=== PATIENT | female | born 1965 | race Caucasian/White ===

== ENCOUNTER 2018-01-29 08:32 | Inpatient (IN) ==
[2018-01-24 16:11] LABS: Basophils # (Auto) 0 K/mcL (0.0-0.3); Basophils % (Auto) 0.6 % (0.0-2.0); Eosinophils # (Auto) 0.1 K/mcL (0.0-0.7); Eosinophils % (Auto) 2.2 % (0.0-7.0); Granulocytes % (Auto) 64.3 % (38.0-78.0); Lymphocytes # (Auto) 1.4 K/mcL (1.5-4.8); Lymphocytes % (Auto) 25.5 % (15.5-49.0); Mean Cell Volume 90.5 fL (80.0-100.0); Mean Corpuscular HGB Conc 34.1 g/dL (31.0-36.0); Mean Corpuscular Hemoglobin 30.8 pg (26.0-34.0); Monocytes # (Auto) 0.4 K/mcL (0.1-0.9); Monocytes % (Auto) 7.4 % (1.0-12.0); Platelet Count 315 K/mcL (140-440); RBC 4.46 M/mcL (4.00-5.20); Red Cell Distribution Width 13.4 % (11.5-14.5)
[2018-01-24 17:05] LABS: Appearance,Urine CLEAR; Bilirubin,Urine NEG (NEG); Color,Urine STRAW; Glucose,Urine (UA) NEGATIVE (NEG); Leukocyte Esterase,Urine NEG /uL (NEG); Protein,Urine NEG (NEG); Urine Blood NEG mg/dL (<0.03); Urobilinogen,Urine NEG (NEG)
[2018-01-24 17:20] LABS: Blood Urea Nitrogen 11 mg/dl (6-20)
[~2018-01-29 08:32] MED LIST: 0.9 % SODIUM CHLORIDE 9 ML, KETOROLAC 30 MG, ROPIVACAINE HCL/PF 49.5 ML, EPINEPHrine 0.... IJ SCH; GABAPENTIN 300 MG CAPSULE PO SCH; ceFAZolin 1 GM VIAL IV SCH; oxyCODONE 10 MG TAB.ER.12H PO SCH
[2018-01-29] MEDS ORDERED: GLYCOPYRROLATE 0.2 MG/ML VIAL IV ONE (13:45)
[2018-01-29] MEDS ORDERED: PROPOFOL 200 MG/20 ML VIAL IV ONE (13:45)
[2018-01-29] MEDS ORDERED: KETAMINE 100 MG/ML ML IV ONE (13:45)
[2018-01-29] MEDS ORDERED: MIDAZOLAM 5 MG/5 ML VIAL IV ONE (13:45)
[2018-01-29] MEDS ORDERED: DEXAMETHASONE 10 MG/ML VIAL IV ONE (13:45)
[2018-01-29] MEDS ORDERED: ROPIVACAINE HCL/PF 20 ML VIAL IJ ONE (13:45)
[2018-01-29] MEDS ORDERED: TRANEXAMIC ACID 1,000 MG/10 ML VIAL IV ONE ×2 (13:45→15:17)
[2018-01-29] MEDS ORDERED: LIDOCAINE HCL/PF 100 MG/5 ML SYRINGE IV ONE (13:45)
[2018-01-29] MEDS ORDERED: ONDANSETRON 4 MG/2 ML VIAL IV ONE (13:45)
[2018-01-29] MEDS ORDERED: MAGNESIUM HYDROXIDE 30 ML ORAL.SUSP PO PRN (15:17)
[2018-01-29] MEDS ORDERED: FLEETS ADULT ENEMA PR PRN (15:17)
[2018-01-29] MEDS ORDERED: BENZOCAINE/MENTHOL 1 LOZENGE PO PRN (15:17)
[2018-01-29] MEDS ORDERED: BISACODYL 10 MG SUPP.RECT PR PRN (15:17)
[2018-01-29] MEDS ORDERED: POLYETHYLENE GLYCOL 3350 17 GM PACKET PO PRN (15:17)
[2018-01-29] MEDS ORDERED: ONDANSETRON 4 MG/2 ML VIAL IV PRN (15:17)
--- NOTE | 2018-01-29 15:17 | Brief Operative Note ---
Date of procedure: 01/29/18 Pre-op diagnosis: Right knee severe DJD Post-op diagnosis: same Procedure: Right robotic assisted total knee arthroplasty Grafts/Implants: Yes ([place] Triathlon CR 4 femur, 4 tibia, 11mm insert, 33 patella) Anesthesia: spinal, GLMA Findings: severe multicompartment arthritis Complications: none Surgeon: Nakul Trevizo Career Technical Education Teacher: Raymond Lundy Estimated blood loss (cc): 30 Specimens Removed/Pathology: none sent Condition: stable Disposition: PACU
[2018-01-29] MEDS ORDERED: GABAPENTIN 300 MG CAPSULE PO PRN (15:20)
[2018-01-29] MEDS ORDERED: RIZATRIPTAN 10 MG TABLET PO PRN (15:20)
[2018-01-29] MEDS ORDERED: NON FORMULARY MEDICATION 1 DOSE MISCELL (Epinephrine [Epipen] 0.3 MG) IM PRN (15:20)
[2018-01-29] MEDS ORDERED: LEVONORGESTREL 1 EACH IUD IY SCH (15:30)
[2018-01-29] MEDS ORDERED: ACETAMINOPHEN 1,000 MG/100 ML BOTTLE IV ONE (15:50)
[2018-01-29] MEDS ORDERED: IPRATROPIUM/ALBUTEROL 3 ML AMPUL.NEB NEB PRN (15:50)
[2018-01-29] MEDS ORDERED: METHOCARBAMOL 1,000 MG/10 ML VIAL IV PRN (15:50)
[2018-01-29] MEDS ORDERED: MEPERIDINE 25 MG/ML SYRINGE IV PRN (15:50)
[2018-01-29] MEDS ORDERED: fentaNYL 100 MCG/2 ML VIAL IV PRN (15:50)
[2018-01-29] MEDS ORDERED: PROMETHAZINE 25 MG/ML VIAL IV PRN (15:50)
[2018-01-29] MEDS ORDERED: LACTATED RINGERS 1,000 ML IV SCH (16:00)
--- NOTE | 2018-01-29 16:45 | XRay Report ---
CLINICAL INFORMATION: Post-op total knee. COMPARISON: None. FINDINGS: Total knee prostheses anatomically aligned. No osseous abnormality. Soft tissues swelling gas seen as expected. IMPRESSION: Negative Interpreted and Authenticated by: Neeraj Araiza 01/29/18
[2018-01-29] MEDS: KETOROLAC 30 MG/ML VIAL IV SCH ×2 (17:31→23:37)
[2018-01-29] MEDS: 0.9 % SODIUM CHLORIDE 1,000 ML IV SCH (17:39)
--- NOTE | 2018-01-29 19:42 | Operative Note ---
DATE OF OPERATION: 01/29/2018 PREOPERATIVE DIAGNOSIS: Right knee severe osteoarthritis. POSTOPERATIVE DIAGNOSIS: Right knee severe osteoarthritis. PROCEDURE PERFORMED: Right robotic-assisted total knee arthroplasty placing a Hira Triathlon size 4 cruciate retaining femoral component, size 4 tibial baseplate, 11 mm X3 tibial insert with a 33 mm patellar button. SURGEON: Nakul Trevizo M.D. BORDER MEASURER: Thong Lundy PA-C. ANESTHESIA: Spinal plus general. DRAINS: None. SPECIMENS: Bone cuts which were discarded. BLOOD LOSS: 30 mL. COMPLICATIONS: None. POSTOPERATIVE CONDITION: Stable. INDICATIONS FOR SURGERY: This is a 52-year-old female who has had longstanding, progressive worsening, severe right knee pain. Radiographs showed severe [id number] osteoarthritis. She had previously had a left total knee arthroplasty done by me in July of this year which she was very pleased with and wished to proceed with the right. FINDINGS AT SURGERY: She had severe arthritis. Post implantation showed good limb alignment, joint stability, and patellar tracking. PROCEDURE IN DETAIL: The patient had been seen preoperatively and informed consent had been obtained after discussion of risks and benefits of surgery. Risks including, but not limited to, bleeding, possibly requiring transfusion; infection, possibly requiring implant removal and prolonged IV antibiotics; injury to nerves, blood vessels, other surrounding structures; anesthetic risks; incomplete or no resolution of symptoms; stiffness; swelling; instability; pain; DVT and pulmonary embolus risks; and the possibility of needing further revision surgery. She understood and wished to proceed. Correct operative site was marked and then patient received spinal anesthesia. She was then taken to the operating room and LMA general given. The right lower extremity was then carefully prepped and draped in normal sterile fashion, and a time-out was performed verifying patient name, operative site, and plan. Esmarch was used to exsanguinate the extremity and tourniquet was inflated. Midline incision was made with a scalpel through skin and subcutaneous tissue. Irrisept was irrigated and then a medial parapatellar arthrotomy made. Subperiosteal exposure was done of the anterior medial tibia and then anterior horns of the menisci removed, as well as retropatellar fat pad, and the ACL was transected. Femoral and tibial checkpoints were placed. Two stab incisions were made over the femur and two over the tibia and bicortical pins placed and the arrays connected. We did our hip center of rotation check followed by green probe, marking the medial and lateral malleoli. Green probe was also used to do double-checks of our femoral and tibial check points. Blue probe was then used to do our mapping. Once this was completed, a rongeur was used to remove osteophytes. The spoons were then used to check our flexion-extension gaps. We then adjusted the implant position, so we had 17 mm gaps in all four compartments. We then used the robotic assistance to make our bone cuts. We placed the trials. We freehand resected the patella with oscillating saw, sized this to a 33, which was medialized maximally and drilled the holes. Patella tracked well, so we went ahead and removed trial implants. Definitive implants were opened. Antibiotic cement was mixed while we irrigated the joint with Irrisept. After a minute, we pulse lavaged with saline. CO2 gun was used to clean and dry the cancellous bone surfaces and then we cemented the tibia. Excess cement was removed. We cemented the femur and excess cement was removed again. A 9 insert trial was placed. The knee was taken into extension. We checked our extension. We were 1 degree short of full extension. We went and cemented the patella. While cement was hardening, we filled the joint with Irrisept. We injected pain cocktail into the pericapsular and subcutaneous tissues. Once cement had fully hardened, we pulse lavaged with saline and then removed the trial insert. We injected pain cocktail in the posterior capsule and then we irrigated the tray with Irrisept. We then decided to trial an 11 insert. This seemed to have even better stability, and so we went ahead and opened an 11 insert and impacted this. Checkpoints were removed. The pins were removed for the arrays. We irrigated with Irrisept, after a minute pulse lavaged with saline. The knee was placed in about 45 degrees of flexion, and we used #2 FiberWire in [id number] to repair the superior quadrant of the patella. The inferior quadrant was repaired with interrupted #1 Vicryl [id number]. Running #1 Vicryl was used for patellar and quad tendons. We irrigated Irrisept again and after a minute pulse lavaged with saline. Then 2-0 Monocryl was used for subcutaneous and kimberley for skin. Xeroform and sterile dressing were applied. Tourniquet was released. The patient was awakened, extubated, and transferred to recovery in stable condition. [email or web address] Job ID: [id number] Doc ID: [id number] Nakul Trevizo MD
[2018-01-29] MEDS: ASPIRIN 325 MG ENTERIC COATED TABLET PO SCH (20:39)
[2018-01-29] MEDS: DOCUSATE SODIUM 100 MG CAPSULE PO SCH (20:39)
[2018-01-29] MEDS: CALCIUM W/VIT D3 500 MG TABLET PO SCH (20:39)
[2018-01-29] MEDS: HYDROcodone/APAP 10/325MG TABLET PO PRN (20:40)
[2018-01-29] MEDS: MULTIVIT,THER IRON,CA,FA & MIN 1 TABLET PO SCH (20:40)
[2018-01-29] MEDS: 0.9 % SODIUM CHLORIDE 10 ML SYRINGE IV SCH (20:40)
[2018-01-29] MEDS: AZELASTINE NAS SCH (20:40)
[2018-01-29] MEDS: FLUTICASONE NAS SCH (20:40)
[2018-01-29] MEDS ORDERED: CBD HEMP OIL PO SCH (21:00)
[2018-01-29] MEDS ORDERED: SENNOSIDES 1 TABLET PO SCH (21:00)
[2018-01-29] MEDS: ceFAZolin 1 GM VIAL IV SCH (21:25)
[2018-01-30] MEDS: HYDROcodone/APAP 10/325MG TABLET PO PRN ×3 (01:23→09:41)
[2018-01-30] MEDS: 0.9 % SODIUM CHLORIDE 1,000 ML IV SCH ×2 (01:39→12:23)
[2018-01-30] MEDS: KETOROLAC 30 MG/ML VIAL IV SCH ×2 (05:53→11:28)
[2018-01-30] MEDS: 0.9 % SODIUM CHLORIDE 10 ML SYRINGE IV SCH (05:54)
[2018-01-30] MEDS: ceFAZolin 1 GM VIAL IV SCH (05:56)
--- NOTE | 2018-01-30 07:44 | Discharge Summary ---
Providers - Providers Patient information: Note initiated : 01/30/18 at 7:40 am Service Date, if different from initiated Date: [] Patient: Vita Nicole 52 y/o F admitted on 01/29/18 for Right Total Knee Arthroplasty- John. Chief Complaint: [] Discharge date: 01/30/18 Hospitalization Hospital course: Pt was admitted for a R TKA. Pt was admitted on day of procedure. Pt spent one night on the floor prior to home discharge for IV pain meds, IV abx, and PT. Pt will take ASA for DVT prophylaxis and attend out-pt PT. F/u in 2 weeks at [place]. Discharge diagnosis: R knee OA Exam - Exam Clean and dry: Yes Weight bearing status: as tolerated Ortho Discharge - TKA - Patient Instructions Diet: Regular Diet Activity: activity as tolerated Total Knee Protocol: For Total Knee: Start ROM ELÍAS with stationary bike or rocking chair. Work on gaining full extension of knee. Posterior dislocation precautions provided. Hip abductor strengthening and gait training instructions provided. Apply Cryocuff as instructed. Dressing Care: May shower in 2 days - Follow Up Plan Follow Up Appointments: Raymond Lundy PA-C [Physician Zone Maintenance Technician] - 02/13/18 8:40 am Disposition: Home, Self-Care Prognosis: Good Rehab Potential: Good Overall status at discharge: patient is progressing back to baseline - Orders For Discharge Prescriptions: Aspirin [Ecotrin] 325 mg PO BID #30 tab.ec HYDROcodone/APAP 10/325MG [[place] 10-325Mg] 1 - 2 tab PO Q4HP PRN #90 tab PRN Reason: Pain Level 3-6 Pending Studies Resuscitation Status Full Code Diet Consistent Carbohydrate Diet Start SatJan 298 Hydrocodone Bitart/Acetaminophen ([place] 10/325mg) 0 tab PO Q4HP PRN PRN Reason: PAIN LEVEL 3-6 Last Admin: 01/30/18 05:54 Dose: 2 tab Admin: 01/30/18 01:23 Dose: 2 tab Admin: 01/29/18 20:40 Dose: 2 tab Aspirin (Ecotrin) 325 mg PO BID [facility] Last Admin: 01/29/18 20:39 Dose: 325 mg Calcium/Vitamin D (Calcium W/Vit D3) 500 mg PO BID [facility] Last Admin: 01/29/18 20:39 Dose: 500 mg Docusate Sodium (Colace) 100 mg PO BID [facility] Last Admin: 01/29/18 20:39 Dose: 100 mg Sodium Chloride (Sodium Chloride 0.9%) 1,000 mls @ 100 mls/hr IV .Q10H [facility] Last Admin: 01/30/18 01:39 Dose: Infusion: 01/30/18 01:38 Dose: 0 mls/hr Admin: 01/29/18 17:39 Dose: 100 mls/hr Iron Carb/Multivit/Employment Manager/Folic Acid (Multivitamin W/Minerals) 1 tab PO BID [facility] Last Admin: 01/29/18 20:40 Dose: 1 tab Ketorolac Tromethamine (Toradol) 30 mg IV Q6 [facility] Stop: 01/31/18 12:01 Last Admin: 01/30/18 05:53 Dose: 30 mg Admin: 01/29/18 23:37 Dose: 30 mg Admin: 01/29/18 17:31 Dose: 30 mg Azelastine/Fluticasone [Dymista ] Nasal [place] 1 dose CHRISTA BID [facility] Last Admin: 01/29/18 20:40 Dose: 1 dose Senna (Senokot) 2 tab PO HS [facility] Last Admin: 01/29/18 20:40 Dose: 2 tab Sodium Chloride (Saline Flush) 10 ml IV Q8 [facility] Last Admin: 01/30/18 05:54 Dose: 10 ml Admin: 01/29/18 20:40 Dose: Not Given Shift Summary 01/30/18 05:10 Shift Summary by Amalia Elizondo&Ox4. VSS on RA; elevated BP. Up with FWW and SBA. Dressing to surgical site to right knee required reinforcement; shadow drainage present. Voiding adequate amounts; last PVR was 178 ml at 0436. Medicated with oral pain medication Q4H; achieving pain goal. Will update at bedside. Initialized on 01/30/18 05:10 - END OF NOTE
[2018-01-30] MEDS: FLUTICASONE NAS SCH (08:01)
[2018-01-30] MEDS: ASPIRIN 325 MG ENTERIC COATED TABLET PO SCH (08:01)
[2018-01-30] MEDS: MULTIVIT,THER IRON,CA,FA & MIN 1 TABLET PO SCH (08:01)
[2018-01-30] MEDS: CALCIUM W/VIT D3 500 MG TABLET PO SCH (08:01)
[2018-01-30] MEDS: DOCUSATE SODIUM 100 MG CAPSULE PO SCH (08:01)
[2018-01-30] MEDS: AZELASTINE NAS SCH (08:01)
[2018-01-30] MEDS ORDERED: MINOCYCLINE 100 MG CAPSULE PO SCH (09:00)
[2018-01-30] MEDS ORDERED: LORATADINE 10 MG TABLET PO SCH (09:00)
[2018-01-30] MEDS ORDERED: VITAMIN D3 400 UNIT TABLET PO SCH (09:00)
[2018-01-30] MEDS ORDERED: LACTOBACILLUS 1 CAPSULE PO SCH (09:00)
[2018-01-30] MEDS ORDERED: CLINDAMYCIN PHOSPHATE 1% TOPICAL SCH (09:00)
== END 2018-01-30 12:20 | disposition home or self-care (01) | DRG 470 ==
LOC: MEDSUR 08:32
PROVIDERS: ADMIT Orthopaedic Surgery; ATTEND Orthopaedic Surgery
CPT/HCPCS: 62322; 97161; C1713; C1776; J0131; J0690; J1100; J1885; J2001; J2250; J2405; J2795; J7030; J7040; J7120